=== PATIENT | male | born 1980 | race Caucasian/White ===

== ENCOUNTER 2025-03-04 02:52 | Emergency (ER) | payer OTHER, SELFPAY ==
[2025-03-04] VITALS (7 sets, daily range): BP systolic 107–135; BP diastolic 60–90; BMI 32.3
[2025-03-04 05:06] LABS: Hematocrit 38.3 % (39.0-52.0); Hemoglobin 13.0 g/dL (13.0-18.0); Mean Corp Hgb Conc. 33.9 g/dL (33.0-37.0); Mean Corpuscular Volume 83.8 fL (80.0-94.0); Nucleated Red Blood Cells % 0 % (-); Platelet Count 167 10^3/uL (130-400); Red Cell Dist. Width 13.7 % (11.5-14.5)
[2025-03-04 05:35] LABS: ALT (SGPT) 34 U/L (0-50); AST (SGOT) 35 U/L (17-59); Albumin 3.9 g/dl (3.5-5.0); Alkaline Phosphatase 119 U/L (38-126); Blood Urea Nitrogen 18 mg/dl (9-20); Calcium 8.1 mg/dl (8.4-10.2); Carbon Dioxide 24 mmol/L (22-30); Chloride 108 mmol/L (98-107); Estimated Creatinine Clearance > 125 ml/min; Glucose 96 mg/dl (70-99); Potassium 3.7 mmol/L (3.5-5.1); Sodium 141 mmol/L (135-145); Total Protein 6.6 g/dl (6.3-8.2); eGFR > 60.00
[2025-03-04 05:46] LABS: Troponin I < 0.012 ng/ml
--- NOTE | 2025-03-04 06:24 | ED.GENMED ---
ED Provider Triage
<Karsten Rodriguez MD, Resident - Last Filed: 03/04/25 07:05>
-
Patient seen by provider in Triage?: Seen in Triage
History of Present Illness
<Karsten Rodriguez MD, Resident - Last Filed: 03/04/25 07:05>
General
Chief Complaint: Heart Rate Problem
Source: patient
Exam Limitations: none
Time Seen by Provider: 03/04/25 05:53
History of Present Illness
History of Present Illness:
44 y/o male with a PMH of HTN presents for irregular heartbeat, dizziness, feeling of passing out today while he was at work. The episode lasted for about 10 minutes. No previous dx of an arrhythmia, heart disease, or thyroid disease. No syncope.
Has been drinking 6 beers a day for a period of 2 weeks. Previously used to drink eccesivley around 2 years ago, but relapsed and started drinking 2 weeks ago. No drug use.
Past History
<Karsten Rodriguez MD, Resident - Last Filed: 03/04/25 07:05>
Social History
Tobacco: Non-smoker
Alcohol: Daily
Drug: None
Personal: Single
Living: alone
Employment: Employed
Review of Systems
<Karsten Rodriguez MD, Resident - Last Filed: 03/04/25 07:05>
Review of Systems
Allergies reviewed?: Yes
All Other Systems: ROS reviewed and negative except as documented in HPI and ROS
Constitutional: Reports no symptoms
Respiratory: Reports no symptoms
Cardiac: Reports no symptoms
ABD/GI: Reports no symptoms
Neurological: Reports no symptoms
Psychiatric: Reports no symptoms
Phy Exam
<Karsten Rodriguez MD, Resident - Last Filed: 03/04/25 07:05>
General Physical Exam
General Presentation: well appearing and no apparent distress
General Skin: warm and dry
General Habitus: normal
General Mental: alert
Cardiovascular Exam
Cardiovascular Exam: regular rate/rhythm, no edema, no gallop, no JVD, no murmur and normal peripheral pulses
Pulmonary Exam
Pulmonary Exam: lungs clear and no respiratory distress
Gastrointestinal Exam
Gastrointestinal Exam: normal bowel sounds, non tender, soft, no organomegaly and non distended
Neurological Exam
Neurological Exam: alert, oriented x3 and normal reflexs
Psychiatric Exam
Psychiatric Exam: normal mood/affect
Course
<Karsten Rodriguez MD, Resident - Last Filed: 03/04/25 07:05>
Orders/Labs/Results
Orders:
Orders
03/04/25 02:56
EKG [Electrocardiogram (*1)] Urgent
Reason for Study: Chest Pain
EKG- Treatment ONCE
03/04/25 04:52
Cardiac Monitoring- Treatment ONCE
IV Insert/Care/Rem.- Treatment PRN
O2 Therapy [RESP] Urgent
Titrate/Wean O2 to maintain O2 sat greater than (%): 90
Special Instructions: Maintain sats >/=90%
Pulse Ox/spot Check [RESP] Urgent
Quantity: 1
Special Instructions: ON ROOM AIR
03/04/25 04:55
Complete Blood Count/With Diff Urgent
Comprehensive Metabolic Panel Urgent
Troponin I Urgent
Abnormal Lab Results
03/04/25
04:55
RBC 4.57 L 10^6/uL
(4.70-6.10)
Hct 38.3 L %
(39.0-52.0)
MPV 10.6 H fL
(7.4-10.4)
Chloride 108 H mmol/L
(98-107)
Calcium 8.1 L mg/dl
(8.4-10.2)
03/04/25 04:55
03/04/25 04:55
Vital Signs
Initial and Last Documented VS:
Initial Vital Signs
Temp Pulse Resp BP Pulse Ox
36.9 C 89 16 130/90 99
03/04/25 03:04 03/04/25 03:04 03/04/25 03:04 03/04/25 03:04 03/04/25 03:04
Last Documented Vital Signs
Temp Pulse Resp BP Pulse Ox
97.8 F 81 15 107/60 96
03/04/25 04:00 03/04/25 06:30 03/04/25 06:30 03/04/25 05:00 03/04/25 06:30
<Trevor Young MD - Last Filed: 03/04/25 07:17>
Orders/Labs/Results
Orders:
Orders
03/04/25 02:56
EKG [Electrocardiogram (*1)] Urgent
Reason for Study: Chest Pain
EKG- Treatment ONCE
03/04/25 04:52
Cardiac Monitoring- Treatment ONCE
IV Insert/Care/Rem.- Treatment PRN
O2 Therapy [RESP] Urgent
Titrate/Wean O2 to maintain O2 sat greater than (%): 90
Special Instructions: Maintain sats >/=90%
Pulse Ox/spot Check [RESP] Urgent
Quantity: 1
Special Instructions: ON ROOM AIR
03/04/25 04:55
Complete Blood Count/With Diff Urgent
Comprehensive Metabolic Panel Urgent
Troponin I Urgent
Abnormal Lab Results
03/04/25
04:55
RBC 4.57 L 10^6/uL
(4.70-6.10)
Hct 38.3 L %
(39.0-52.0)
MPV 10.6 H fL
(7.4-10.4)
Chloride 108 H mmol/L
(98-107)
Calcium 8.1 L mg/dl
(8.4-10.2)
03/04/25 04:55
03/04/25 04:55
Vital Signs
Initial and Last Documented VS:
Initial Vital Signs
Temp Pulse Resp BP Pulse Ox
36.9 C 89 16 130/90 99
03/04/25 03:04 03/04/25 03:04 03/04/25 03:04 03/04/25 03:04 03/04/25 03:04
Last Documented Vital Signs
Temp Pulse Resp BP Pulse Ox
97.8 F 81 15 107/60 96
03/04/25 04:00 03/04/25 06:30 03/04/25 06:30 03/04/25 05:00 03/04/25 06:30
<Karsten Rodriguez MD, Resident - Last Filed: 03/04/25 07:05>
MDM/Problems Addressed
Differential Diagnosis Includes:
Alcohol induced arrhythmia, PAC/PVC's, electrolyte abnormalities
MDM/Problems Addressed:
44 y/o male with irregular heartbeat, feeling of passing out, and dizziness with chronic alcohol abuse. Normal physical examination. Hemodynamically stable.
EKG- normal
CBC and CMP normal
Troponins- wnl
Will discharge patient with limited quantity diazepam to prevent acute alcohol withdrawl
<Karsten Rodriguez MD, Resident - Last Filed: 03/04/25 07:05>
*Pulse Oximetry
SaO2: 96
Oxygen Mode of Delivery: Room air
Patient hypoxic: no
*Critical Care Note
Total Time (30-74mins, 75-104mins- exclusive of procedures): Not Applicable
ED Attending Note
<Karsten Rodriguez MD, Resident - Last Filed: 03/04/25 07:05>
-
Portions of this chart may have been created with voice recognition software.� Occasional wrong word or��sound alike� substitutions may have occurred due to the inherent limitations of voice recognition software.
<Trevor Young MD - Last Filed: 03/04/25 07:17>
ED Attending Note
Patient seen and examined by attending physician: Yes
I performed a history and physical exam of patient and discussed management with resident, I reviewed resident's note and agree with documented findings and plan of care.: Yes
ED Attending Note:
I have seen and evaluated the patient with a [id number] encounter. I have spoken to the resident and involved in the medical history, the physical exam, medical decision making.
Evaluation and management service: agree unless noted differently below.
Results interpretation: agree unless noted differently below.
Focused HPI: 44-year-old male with history as noted presents to the ER for evaluation after episode of palpitations. Patient reports that he was walking down the hallway at work when he began to notice palpitations and felt his heart racing. He
says that he began to feel lightheaded. He says that this lasted for about 10 minutes before it resolved. He decided to come to the emergency room to be evaluated because he says this is an unusual episode for him. Denies any associated chest
pain or shortness of breath. Here in the emergency room he says he feels 'fine' and has no acute complaints. He does note that he recently started drinking again after being sober for 2 years�he says he drinks about 6 beers a day.
Physical exam: Awake and alert not in distress. Vital signs noted all within normal limits. He has no cardiac rubs gallops or murmurs. Lungs sound clear. No edema in the legs.
Medical Decision Makin-year-old male presents for evaluation after 10-minute episode of palpitations and lightheadedness. Symptoms have completely resolved. Symptoms occurred in the setting of recent heavy drinking. EKG shows a normal sinus
rhythm. He has LVH on EKG as well as right bundle branch block. No ectopy noted, no significant QTc prolongation or AV block. Labs were sent off including a CBC and CMP which showed no clinically significant abnormalities. Troponin undetectable.
I had a long discussion with the patient. No clear emergent cause for his palpitations this afternoon but I explained to him that his EKG is abnormal and he really should be seen by cardiology for close follow-up after this episode. Likely will
need Holter monitor. He indicated understanding. No clear indication for hospitalization at this point. We did have a long discussion about his alcohol use. It sounds like he has a strong support system in place and is eager to stop drinking but
does not feel he would benefit from rehab or detox. He is requesting some medication to aid with alcohol withdrawal--provided a very short prescription for as needed benzodiazepine to aid his efforts at alcohol cessation. I did stress to him that
this should not be mixed with alcohol. Stable for discharge at this point.
Discharge Plan
Departure
Patient with high blood pressure during this ER visit?: No
Discharge Problem:
Palpitations, Alcohol use disorder
Instructions: Palpitations (DC)
Prescriptions:
New
diazepam [Valium] 5 mg tablet
5 mg PO TID PRN (Reason: alcohol withdrawal) Qty: 5 0RF
Referrals:
Rashaun Hughes MD [Active, Cardiology] - Call in 1-3 days for appt
Activity Restrictions/Additional Instructions:
You were seen in the emergency room after an episode of palpitations. You did have an EKG and there were some abnormalities and you should see a charge master specialist to follow-up with your symptoms and your EKG. You should call first thing tomorrow to
schedule an appointment. We talked about your alcohol use and you were given some medicine to help prevent withdrawal. You should not mix this medication with alcohol. If you change your mind and wish to pursue rehab detox you can always return
to the ER.
Thank you for visiting the Emergency Department at [facility].
1. Please schedule a follow up appointment as directed. Call first thing tomorrow morning to make an appointment.
2. If indicated, please take your medications as instructed and indicated on discharge paperwork.
3. If any of your symptoms do not improve, or persist, or become more severe within 6-12 hours, please return to the emergency department for further care.
4. Please return to the emergency department if you develop a headache, neck pain/stiffness, fever greater than 100.4F, chest pain, shortness of breath, persistent nausea, vomiting, slurred speech, difficulty walking, numbness/tingling, weakness,
signs of infection or any other symptoms that are worrisome to you.
Please call [phone] if you have any questions.
Interventions
Interventions:
*Risk Screen - Suicide Last Done: 03/04/25 03:04
*General Assessment Last Done: 03/04/25 03:04
*Neglect/Abuse Screening Last Done: 03/04/25 03:29
*ED COVID-19 Vaccine History Last Done: 03/04/25 03:29
ED- Cardiac Assessment Last Done: 03/04/25 04:05
ED- Pulmonary Assessment Last Done: 03/04/25 04:05
Discharge Date and Time
Print Language: TURKISH
== END 2025-03-04 08:33 | disposition home or self-care (01) ==
LOC: EMR 02:52
PROVIDERS: EMERGENCY PHYSICIAN Emergency Medicine; FAMILY PHYSICIAN Psychiatry & Neurology Child & Adolescent Psychiatry
DX: R00.2 Palpitations (principal); F10.20 Alcohol dependence, uncomplicated; I11.9 Hypertensive heart disease without heart failure; I45.10 Unspecified right bundle-branch block
CPT/HCPCS: 99284; 80053; 84484; 85025; 93005